=== PATIENT | female | born 1985 | race African-American/Black ===

== ENCOUNTER 2016-12-01 10:35 | Inpatient (IN) | payer MEDICAID ==
[~2016-12-01] VITALS: Ht 172.7 cm; Wt 75.8 kg
[~2016-12-01 10:35] MED LIST: AZITTAB11 PO; DEXTSYP35 PO
[2016-12-01 11:22] LABS: Basophils # (auto) 0.1 uL; Basophils % (auto) 0.8 % (0.0-2.0); Eosinophils # (auto) 0 uL; Eosinophils % (auto) 0.3 % (0.0-7.0); Hematocrit 42.6 % (36.0-46.0); Hemoglobin 14.4 g/dL (12.2-16.2); Lymphocytes # (auto) 0.9 uL; Lymphocytes % (auto) 13.6 % (10.0-50.0); Mean Corpuscular Hemoglobin 31.7 pg (28.0-32.0); Mean Corpuscular Hgb Conc. 33.9 g/dL (32.0-36.0); Mean Corpuscular Volume 93.6 fL (80.0-100.0); Mean Platelet Volume 11.1 fL (7.4-10.4); Monocytes # (auto) 0.5 uL; Monocytes % (auto) 7.6 % (0.0-12.0); Neutrophils # (auto) 5.2 uL; Neutrophils % (auto) 77.7 % (37.0-80.0); Platelet Count (auto) 267 10^3/uL (140-450); SUSPECT VIEW TRANSMISSION; White Blood Cell 6.7 10^3/uL (4.4-10.8)
[2016-12-01 12:44] LABS: Albumin 4.9 g/dL (3.4-5.0); Alkaline Phosphatase 147 U/L (45-117); Anion Gap 26 (5-15); Aspartate Aminotransferase 654 U/L (15-37); BUN/Creatinine Ratio 9.5; Bilirubin, Total 2.8 mg/dL (0.2-1.0); Blood Urea Nitrogen 10 mg/dL (7-18); Calcium 9.9 mg/dL (8.5-10.1); Carbon Dioxide 15 mmol/L (21-32); Chloride 92 mmol/L (98-107); GFR African American 80 mL/min; GFR Non-African American 66 mL/min; Glucose 92 mg/dL (74-106); Magnesium 2.3 mg/dL (1.6-2.6); Potassium 3.8 mmol/L (3.5-5.1); Sodium 133 mmol/L (136-145); Total Protein 9.3 g/dL (6.4-8.2)
[2016-12-01] MEDS ORDERED: SODIUM CHLORIDE 0.9% 1,000 ML IVB ONE (13:18)
[2016-12-01] MEDS ORDERED: ONDANSETRON HCL 4 MG/2 ML VIAL IV ONE ×2 (13:30→15:45)
[2016-12-01 14:00] LABS: Amylase 149 U/L (25-115)
[2016-12-01 14:25] LABS: INR 0.99 (0.9-1.15); Partial Thromboplastin Time 27.1 sec (22.64-33.71); Prothrombin Time 10.7 sec (9.37-12.3)
[2016-12-01] MEDS ORDERED: KETOROLAC TROMETH 30 MG/ML 1ML VIAL IV ONE (14:30)
[2016-12-01] MEDS ORDERED: SODIUM CHLORIDE 0.9% 1,000 ML IV ONE (15:45)
[2016-12-01] MEDS ORDERED: MORPHINE SULF INJ 2 MG/ML SYRINGE 1ML IV ONE (15:45)
[2016-12-01] MEDS ORDERED: cefTRIAXone 1GM/50ML D5W 50 ML IV ONE (15:45)
[2016-12-01] MEDS ORDERED: metroNIDAZOLE 500MG/100ML 100 ML IV ONE (15:45)
[2016-12-01] MEDS ORDERED: PANTOPRAZOLE SODIUM 40 MG/10 ML VIAL IV ONE ×2 (17:00→18:15)
[2016-12-01] MEDS ORDERED: LORazepam 2MG/ML-1ML VIAL IV PRN (18:15)
[2016-12-01] MEDS ORDERED: MORPHINE SULFATE 4 MG/ML SYRG IV PRN (18:15)
[2016-12-01] MEDS ORDERED: NITROGLYCERIN 0.4 MG SL TAB SL PRN (18:15)
[2016-12-01] MEDS ORDERED: MORPHINE SULF INJ 2 MG/ML SYRINGE 1ML IV PRN (18:15)
[2016-12-01] MEDS ORDERED: IOHEXOL 350 MG/ML 100ML IJ ONE (19:52)
[2016-12-01] MEDS: MORPHINE SULF INJ 2 MG/ML SYRINGE 1ML IV PRN (20:30)
[2016-12-01] MEDS: PROMETHAZINE HCL 25 MG/ML 1ML IV PRN (20:30)
[2016-12-01] MEDS: SODIUM CHLORIDE 0.9% 1,000 ML IV SCH (20:30)
[2016-12-01 21:00] VITALS: BP 124/85
[2016-12-01 22:57] VITALS: BP 124/85
[2016-12-02] MEDS: metroNIDAZOLE 500MG/100ML 100 ML IV SCH ×3 (00:47→16:47)
[2016-12-02] MEDS: MORPHINE SULF INJ 2 MG/ML SYRINGE 1ML IV PRN ×4 (00:48→20:18)
[2016-12-02] MEDS: PROMETHAZINE HCL 25 MG/ML 1ML IV PRN ×5 (00:48→20:06)
[2016-12-02 03:49] LABS: Urine RBC None Seen /hpf (0 - 4)
[2016-12-02 03:57] LABS: Urine Bilirubin Negative (Negative); Urine Blood Negative /uL (Negative); Urine Color Yellow (Yellow); Urine Glucose Normal (Normal); Urine Nitrite Negative (Negative); Urine Squamous Epithelial Cell FEW /hpf (<5); Urine Urobilinogen Normal (Negative); Urine pH 5.5 (5.0-8.0)
[2016-12-02 04:01] LABS: Urine Ketone 4+ (Negative)
[2016-12-02] MEDS: SODIUM CHLORIDE 0.9% 1,000 ML IV SCH ×3 (05:35→14:40)
[2016-12-02 05:46] VITALS: BP 128/87
[2016-12-02 06:59] LABS: Basophils # (auto) 0 uL; Eosinophils # (auto) 0.1 uL; Eosinophils % (auto) 1.5 % (0.0-7.0); Lymphocytes # (auto) 0.4 uL; Lymphocytes % (auto) 4.2 % (10.0-50.0); Mean Corpuscular Hgb Conc. 34.3 g/dL (32.0-36.0); Mean Corpuscular Volume 93.4 fL (80.0-100.0); Mean Platelet Volume 11.8 fL (7.4-10.4); Monocytes # (auto) 0.6 uL; Monocytes % (auto) 6.3 % (0.0-12.0); Neutrophils # (auto) 8.5 uL; Platelet Count (auto) 211 10^3/uL (140-450); Red Cell Distribution Width 13.9 % (11.6-16.0); SUSPECT VIEW TRANSMISSION; White Blood Cell 9.7 10^3/uL (4.4-10.8)
[2016-12-02 07:16] LABS: Albumin 3.7 g/dL (3.4-5.0); BUN/Creatinine Ratio 7.7; Bilirubin, Total 1.5 mg/dL (0.2-1.0); Calcium 8.5 mg/dL (8.5-10.1); Total Protein 7.3 g/dL (6.4-8.2)
[2016-12-02 09:00] VITALS: BP 119/73
[2016-12-02] MEDS: PANTOPRAZOLE SODIUM 40 MG/10 ML VIAL IV SCH (09:58)
[2016-12-02] MEDS: cefTRIAXone 1GM/50ML D5W 50 ML IV SCH (09:58)
[2016-12-02 14:24] VITALS: BP 121/52
[2016-12-02 15:58] VITALS: BP 122/79
[2016-12-02 19:50] VITALS: BP 118/79
[2016-12-02 22:17] VITALS: BP 118/77
[2016-12-03] MEDS: metroNIDAZOLE 500MG/100ML 100 ML IV SCH ×3 (00:12→17:24)
[2016-12-03] MEDS: PROMETHAZINE HCL 25 MG/ML 1ML IV PRN ×5 (00:12→21:42)
[2016-12-03] MEDS: MORPHINE SULF INJ 2 MG/ML SYRINGE 1ML IV PRN ×5 (00:51→21:43)
[2016-12-03] MEDS: SODIUM CHLORIDE 0.9% 1,000 ML IV SCH ×5 (00:55→23:29)
[2016-12-03 05:25] LABS: Basophils # (auto) 0 uL; Basophils % (auto) 0.1 % (0.0-2.0); Eosinophils # (auto) 0.3 uL; Eosinophils % (auto) 2.9 % (0.0-7.0); Hematocrit 34.3 % (36.0-46.0); Hemoglobin 11.7 g/dL (12.2-16.2); Lymphocytes # (auto) 0.7 uL; Lymphocytes % (auto) 8.5 % (10.0-50.0); Mean Corpuscular Hemoglobin 32.2 pg (28.0-32.0); Mean Corpuscular Hgb Conc. 34.3 g/dL (32.0-36.0); Mean Corpuscular Volume 93.8 fL (80.0-100.0); Mean Platelet Volume 11.5 fL (7.4-10.4); Monocytes # (auto) 0.7 uL; Monocytes % (auto) 8.2 % (0.0-12.0); Neutrophils # (auto) 7.1 uL; Neutrophils % (auto) 80.3 % (37.0-80.0); Platelet Count (auto) 172 10^3/uL (140-450); Red Cell Distribution Width 13.8 % (11.6-16.0); White Blood Cell 8.8 10^3/uL (4.4-10.8)
[2016-12-03 05:42] VITALS: BP 113/75
[2016-12-03 05:47] LABS: Albumin 3.1 g/dL (3.4-5.0); BUN/Creatinine Ratio 9.1; Bilirubin, Total 1.1 mg/dL (0.2-1.0); Calcium 8.5 mg/dL (8.5-10.1); Potassium 3.2 mmol/L (3.5-5.1); Total Protein 6.2 g/dL (6.4-8.2)
[2016-12-03 07:31] VITALS: BP 112/74
[2016-12-03] MEDS: cefTRIAXone 1GM/50ML D5W 50 ML IV SCH (08:51)
[2016-12-03] MEDS: ENOXAPARIN SOD 40 MG/0.4 ML SYRINGE SC SCH (10:19)
[2016-12-03] MEDS: PANTOPRAZOLE SODIUM 40 MG/10 ML VIAL IV SCH ×2 (10:20→21:43)
[2016-12-03 10:59] VITALS: BP 110/79
[2016-12-03 16:10] VITALS: BP 104/65
[2016-12-03] MEDS ORDERED: SODIUM CHLORIDE 0.9% 2,000 ML IV ONE (20:00)
[2016-12-03] MEDS ORDERED: POTASSIUM CHL 20MEQ/100ML 100 ML IV ONE (20:00)
[2016-12-03 22:03] VITALS: BP 109/78
[2016-12-04] VITALS (7 sets, daily range): BP systolic 108–128; BP diastolic 60–84
[2016-12-04] MEDS: PROMETHAZINE HCL 25 MG/ML 1ML IV PRN ×4 (05:20→18:54)
[2016-12-04] MEDS: MORPHINE SULF INJ 2 MG/ML SYRINGE 1ML IV PRN ×4 (05:21→21:40)
[2016-12-04] MEDS: metroNIDAZOLE 500MG/100ML 100 ML IV SCH ×4 (05:31→17:03)
[2016-12-04] MEDS: SODIUM CHLORIDE 0.9% 1,000 ML IV SCH ×3 (06:09→19:29)
[2016-12-04 06:33] LABS: Basophils # (auto) 0 uL; Basophils % (auto) 0.5 % (0.0-2.0); Eosinophils # (auto) 0.2 uL; Hematocrit 28.8 % (36.0-46.0); Hemoglobin 9.9 g/dL (12.2-16.2); Lymphocytes # (auto) 1.3 uL; Lymphocytes % (auto) 17.4 % (10.0-50.0); Mean Corpuscular Hemoglobin 31.9 pg (28.0-32.0); Mean Corpuscular Hgb Conc. 34.3 g/dL (32.0-36.0); Mean Corpuscular Volume 93.3 fL (80.0-100.0); Mean Platelet Volume 11.2 fL (7.4-10.4); Monocytes # (auto) 0.8 uL; Monocytes % (auto) 10.3 % (0.0-12.0); Neutrophils % (auto) 68.8 % (37.0-80.0); Platelet Count (auto) 160 10^3/uL (140-450); Red Cell Distribution Width 13.9 % (11.6-16.0); White Blood Cell 7.3 10^3/uL (4.4-10.8)
[2016-12-04 07:09] LABS: Albumin 2.8 g/dL (3.4-5.0); BUN/Creatinine Ratio 6.8; Bilirubin, Total 1.1 mg/dL (0.2-1.0); Calcium 8.2 mg/dL (8.5-10.1); Magnesium 1.7 mg/dL (1.6-2.6); Potassium 3.1 mmol/L (3.5-5.1); Total Protein 5.6 g/dL (6.4-8.2)
[2016-12-04 07:12] LABS: Bilirubin, Direct 0.4 mg/dL (0-0.2)
[2016-12-04] MEDS: ENOXAPARIN SOD 40 MG/0.4 ML SYRINGE SC SCH (10:00)
[2016-12-04] MEDS: PANTOPRAZOLE SODIUM 40 MG/10 ML VIAL IV SCH ×2 (10:10→21:40)
[2016-12-04] MEDS: cefTRIAXone 1GM/50ML D5W 50 ML IV SCH (10:10)
[2016-12-04] MEDS ORDERED: POTASSIUM CHL 10% (20 MEQ/15ML) ORAL SOLN PO ONE (13:15)
[2016-12-04] MEDS ORDERED: POTASSIUM CHL 20MEQ/100ML 100 ML IV ONE (13:15)
[2016-12-04] MEDS: MAGNESIUM SULFATE 1GM/100ML 100 ML IV SCH ×2 (15:23→17:02)
[2016-12-04] MEDS ORDERED: TEMAZEPAM 15 MG CAP PO ONE (22:45)
[2016-12-05] VITALS (8 sets, daily range): BP systolic 114–132; BP diastolic 55–84
[2016-12-05] MEDS: metroNIDAZOLE 500MG/100ML 100 ML IV SCH ×3 (00:02→16:00)
[2016-12-05] MEDS: SODIUM CHLORIDE 0.9% 1,000 ML IV SCH ×3 (02:55→15:29)
[2016-12-05 07:31] LABS: Basophils # (auto) 0 uL; Basophils % (auto) 0.5 % (0.0-2.0); Eosinophils # (auto) 0.3 uL; Eosinophils % (auto) 4.3 % (0.0-7.0); Hemoglobin 10.2 g/dL (12.2-16.2); Lymphocytes # (auto) 1.4 uL; Lymphocytes % (auto) 21.3 % (10.0-50.0); Mean Corpuscular Hemoglobin 31.5 pg (28.0-32.0); Mean Corpuscular Hgb Conc. 33.9 g/dL (32.0-36.0); Mean Corpuscular Volume 92.8 fL (80.0-100.0); Mean Platelet Volume 11.2 fL (7.4-10.4); Monocytes # (auto) 0.8 uL; Monocytes % (auto) 12.1 % (0.0-12.0); Neutrophils # (auto) 3.9 uL; Neutrophils % (auto) 61.8 % (37.0-80.0); Platelet Count (auto) 185 10^3/uL (140-450); Red Cell Distribution Width 13.6 % (11.6-16.0); SUSPECT VIEW TRANSMISSION; White Blood Cell 6.4 10^3/uL (4.4-10.8)
[2016-12-05 08:22] LABS: Albumin 2.8 g/dL (3.4-5.0); BUN/Creatinine Ratio 5.7; Calcium 8.5 mg/dL (8.5-10.1); Magnesium 1.8 mg/dL (1.6-2.6)
[2016-12-05 08:23] LABS: Bilirubin, Direct 0.3 mg/dL (0-0.2)
[2016-12-05] MEDS: MORPHINE SULF INJ 2 MG/ML SYRINGE 1ML IV PRN ×3 (09:01→22:14)
[2016-12-05] MEDS: PROMETHAZINE HCL 25 MG/ML 1ML IV PRN ×3 (09:02→20:18)
[2016-12-05] MEDS: PANTOPRAZOLE SODIUM 40 MG/10 ML VIAL IV SCH ×2 (10:06→22:13)
[2016-12-05] MEDS: ENOXAPARIN SOD 40 MG/0.4 ML SYRINGE SC SCH (10:06)
[2016-12-05] MEDS: cefTRIAXone 1GM/50ML D5W 50 ML IV SCH (10:06)
[2016-12-05] MEDS: HYDROcodone-ACET 5/325MG TAB PO PRN (10:18)
[2016-12-05] MEDS ORDERED: POTASSIUM CHL 20 Meq TABLET PO ONE (12:45)
[2016-12-05] MEDS ORDERED: POTASSIUM CHLORIDE 40 MEQ, LIDOCAINE 1% (LOCAL ANESTH.) 4 ML in SODIUM CHL 0.9% 250 ML IV ONE (12:45)
[2016-12-05] MEDS ORDERED: LEVO500T3 PO (13:26)
[2016-12-05] MEDS ORDERED: PANT40T PO (13:26)
[2016-12-05] MEDS ORDERED: METR500T PO (13:26)
[2016-12-05] MEDS ORDERED: IOHEXOL 300 MG/ML 100ML BOTTLE IJ ONE (16:56)
[2016-12-06] MEDS: metroNIDAZOLE 500MG/100ML 100 ML IV SCH ×4 (01:15→23:52)
[2016-12-06] MEDS: SODIUM CHLORIDE 0.9% 1,000 ML IV SCH ×4 (04:49→18:09)
[2016-12-06 05:32] VITALS: BP 130/83
[2016-12-06] MEDS: PROMETHAZINE HCL 25 MG/ML 1ML IV PRN ×2 (06:21→21:28)
[2016-12-06 08:00] VITALS: BP 123/73
[2016-12-06] MEDS ORDERED: LIDOCAINE VISCOUS 2% 15ML UD ONE (08:30)
[2016-12-06] MEDS ORDERED: SODIUM CHLORIDE LOCK 10 ML ONE (08:30)
[2016-12-06] MEDS ORDERED: diphenhdrAMINE HCL 50 MG/1 ML VL ONE (08:30)
[2016-12-06] MEDS: MORPHINE SULF INJ 2 MG/ML SYRINGE 1ML IV PRN ×2 (08:39→21:28)
[2016-12-06 08:44] VITALS: BP 123/73
[2016-12-06] MEDS: cefTRIAXone 1GM/50ML D5W 50 ML IV SCH (09:00)
[2016-12-06] MEDS: ENOXAPARIN SOD 40 MG/0.4 ML SYRINGE SC SCH (10:00)
[2016-12-06 13:35] VITALS: BP 119/71
[2016-12-06] MEDS: PANTOPRAZOLE SODIUM 40 MG/10 ML VIAL IV SCH ×2 (14:04→21:37)
[2016-12-06 15:11] LABS: BUN/Creatinine Ratio 5.1; Calcium 9.1 mg/dL (8.5-10.1); Magnesium 1.5 mg/dL (1.6-2.6)
[2016-12-06 15:19] LABS: Basophils # (auto) 0 uL; Basophils % (auto) 0.7 % (0.0-2.0); Eosinophils # (auto) 0.2 uL; Eosinophils % (auto) 3.3 % (0.0-7.0); Hemoglobin 11.1 g/dL (12.2-16.2); Lymphocytes # (auto) 1.2 uL; Lymphocytes % (auto) 19.5 % (10.0-50.0); Mean Corpuscular Hgb Conc. 34.5 g/dL (32.0-36.0); Mean Corpuscular Volume 92.6 fL (80.0-100.0); Mean Platelet Volume 11.1 fL (7.4-10.4); Monocytes # (auto) 0.9 uL; Monocytes % (auto) 14.1 % (0.0-12.0); Neutrophils # (auto) 3.8 uL; Neutrophils % (auto) 62.4 % (37.0-80.0); Platelet Count (auto) 208 10^3/uL (140-450); Red Cell Distribution Width 13.4 % (11.6-16.0); SUSPECT VIEW TRANSMISSION; White Blood Cell 6.1 10^3/uL (4.4-10.8)
[2016-12-06] MEDS: fentaNYL CITRATE 100 MCG/2 ML VL ONE ×3 (15:25→15:31)
[2016-12-06] MEDS: MIDAZOLAM HCL 5 MG/ML-1ML VIAL ONE ×3 (15:25→15:31)
[2016-12-06] MEDS: POTASSIUM CHLORIDE 20 MEQ, LIDOCAINE 1% (LOCAL ANESTH.) 2 ML in SODIUM CHL 0.9% 100 ML IV SCH ×3 (16:30→22:41)
[2016-12-06] MEDS: POTASSIUM CHL 10% (20 MEQ/15ML) ORAL SOLN PO SCH ×2 (16:45→20:45)
[2016-12-06] MEDS ORDERED: MAGNESIUM SULFATE 1GM/100ML 100 ML IV SCH (17:00)
[2016-12-06 17:28] VITALS: BP 129/86
[2016-12-06] MEDS: MAGNESIUM SULFATE 1GM/100ML 100 ML IV SCH ×3 (20:17→22:41)
[2016-12-06] MEDS ORDERED: ZOLPIDEM TARTRATE 5 MG TAB PO PRN (22:30)
[2016-12-06] MEDS ORDERED: MAGNESIUM SULFATE 1GM/100ML 100 ML IV ONE (22:36)
[2016-12-07] VITALS (7 sets, daily range): BP systolic 118–132; BP diastolic 82–97
[2016-12-07] MEDS: SODIUM CHLORIDE 0.9% 1,000 ML IV SCH ×3 (00:49→14:09)
[2016-12-07 06:58] LABS: Basophils # (auto) 0 uL; Basophils % (auto) 0.9 % (0.0-2.0); Eosinophils # (auto) 0.2 uL; Eosinophils % (auto) 3.4 % (0.0-7.0); Hematocrit 30.2 % (36.0-46.0); Hemoglobin 10.4 g/dL (12.2-16.2); Lymphocytes # (auto) 1.4 uL; Lymphocytes % (auto) 23.4 % (10.0-50.0); Mean Corpuscular Hemoglobin 31.8 pg (28.0-32.0); Mean Corpuscular Hgb Conc. 34.6 g/dL (32.0-36.0); Mean Corpuscular Volume 91.8 fL (80.0-100.0); Mean Platelet Volume 10.7 fL (7.4-10.4); Monocytes # (auto) 0.9 uL; Monocytes % (auto) 15.9 % (0.0-12.0); Neutrophils # (auto) 3.3 uL; Neutrophils % (auto) 56.4 % (37.0-80.0); Platelet Count (auto) 217 10^3/uL (140-450); Red Cell Distribution Width 13.9 % (11.6-16.0); SUSPECT VIEW TRANSMISSION; White Blood Cell 5.8 10^3/uL (4.4-10.8)
[2016-12-07 07:16] LABS: BUN/Creatinine Ratio 3.1; Calcium 8.5 mg/dL (8.5-10.1); Potassium 3.4 mmol/L (3.5-5.1)
[2016-12-07] MEDS: PROMETHAZINE HCL 25 MG/ML 1ML IV PRN ×2 (08:03→13:38)
[2016-12-07] MEDS: MORPHINE SULF INJ 2 MG/ML SYRINGE 1ML IV PRN ×2 (08:03→14:48)
[2016-12-07] MEDS: metroNIDAZOLE 500MG/100ML 100 ML IV SCH ×2 (08:19→16:00)
[2016-12-07] MEDS: ENOXAPARIN SOD 40 MG/0.4 ML SYRINGE SC SCH (10:00)
[2016-12-07] MEDS: PANTOPRAZOLE SODIUM 40 MG/10 ML VIAL IV SCH (10:04)
[2016-12-07] MEDS: cefTRIAXone 1GM/50ML D5W 50 ML IV SCH (10:05)
[2016-12-07] MEDS: HYDROcodone-ACET 5/325MG TAB PO PRN (10:05)
[2016-12-07] MEDS ORDERED: POTASSIUM CHL 10% (20 MEQ/15ML) ORAL SOLN PO ONE (11:15)
[2016-12-07] MEDS ORDERED: POTASSIUM CHL 10MEQ/50ML 50 ML IV ONE (11:15)
[2016-12-07] MEDS ORDERED: PRO-STAT 64 30ML PO SCH (18:00)
[2016-12-07] MEDS ORDERED: METO-281 PO (18:47)
[2016-12-07] MEDS ORDERED: PROM25TA5 PO (18:51)
== END 2016-12-07 20:40 | disposition left against medical advice (07) | DRG 282 ==
LOC: ER 10:35 → TELE 10:36 → TELE-CENTR 20:00
PROVIDERS: ADMIT Internal Medicine; ATTEND Hospitalist
PROC: 0DB68ZX Excision of Stomach, Via Natural or Artificial Opening Endoscopic, Diagnostic (ICD-10-PCS; principal; 2016-12-06 15:18)
DX: K85.90 Acute pancreatitis without necrosis or infection, unspecified (principal); N17.9 Acute kidney failure, unspecified; E87.2 Acidosis; R16.0 Hepatomegaly, not elsewhere classified; K76.0 Fatty (change of) liver, not elsewhere classified; E87.1 Hypo-osmolality and hyponatremia; F17.210 Nicotine dependence, cigarettes, uncomplicated; B17.9 Acute viral hepatitis, unspecified; K52.9 Noninfective gastroenteritis and colitis, unspecified; F10.20 Alcohol dependence, uncomplicated; H53.8 Other visual disturbances; Z86.718 Personal history of other venous thrombosis and embolism; Z71.6 Tobacco abuse counseling
CPT/HCPCS: 36415; 43239; 71020; 71275; 74176; 74178; 76705; 80048; 80053; 80061; 80076; 80307; 80320; 81001; 82150; 83690; 83735; 84484; 84702; 85025; 85379; 85610; 85730; 93005; 94761; 96365; 96366; 96367; 96375; 96376; C9113; J0696; J1885; J2001; J2250; J2405; J3480; J3490